=== PATIENT | female | born 1995 | race Caucasian/White ===

== ENCOUNTER 2022-08-31 21:15 | Emergency (ER) | payer OTHER, SELFPAY ==
[2022-08-31 21:47] VITALS: BP 123/83; PULSE 84; RESP 16; TEMP 36.8; O2SAT 97
--- NOTE | 2022-09-01 00:35 | ED_ITS ---
HPI - Animal Bite General Chief Complaint: Animal Bite Stated Complaint: racoon bite? scratch? Time Seen by Provider: 08/31/22 23:45 History of Present Illness HPI narrative: Patient is a 27-year-old female presenting after exposure to a raccoon. Patient states that she was at work when she was getting something out of a small shed that is raised approximately a foot off the ground. There was a raccoon underneath that she was not aware of which then either bit or scratched her on h er left lower leg. She immediately ran away. Her job was concerned about rabies prophylaxis so advised she come in. Other than the small wound on her left lower leg, she denies further complaints. Related Data Allergies Allergy/AdvReac Type Severity Reaction Status Date / Time No Known Allergies Allergy Verified 08/31/22 23:50 Review of Systems Review of Systems: All systems reviewed & are unremarkable except as noted in HPI and below Exam Narrative: GENERAL: Well-appearing, well-nourished, and in no acute distress. HEAD: Normocephalic, atraumatic. EYES: PERRLA and EOMI. ENT: Nares clear, no rhinorrhea or epistaxis. Mucous membranes moist. NECK: Supple. CHEST: Clear to auscultation. No respiratory distress. HEART: Regular rate and rhythm. No murmur heard. Normal peripheral pulses. ABDOMEN: Soft, nontender, nondistended, normal active bowel sounds. EXTREMITIES: Normal range of motion. No edema. SKIN: small abrasion to anterior aspect of lower left leg NEURO: No focal deficits. Alert and oriented x3. PSYCH: Normal mood and affect. Course Course Emergency Course: Patient is a 27-year-old female presenting after being bitten or scratched by a raccoon. Patient was given rabies vaccine as well as rabies immunoglobulin. Immunoglobulin was injected around the wound and remaining dose was delivered intramuscularly in the left thigh. Rabies vaccine was in her right deltoid. Discussed that she needs to return in 3 days, 7 days, 14 days for further v accination. Appropriate return precautions given. Patient voiced understanding and is agreeable with plan. Discharged in stable condition. Vital Signs Vital signs: Vital Signs Temperature 98.3 F 08/31/22 21:47 Pulse Rate 84 08/31/22 21:47 Respiratory Rate 16 08/31/22 21:47 Blood Pressure 123/83 08/31/22 21:47 Pulse Oximetry 97 08/31/22 21:47 Oxygen Delivery Room Air 08/31/22 21:47 Temperature 98.3 F 08/31/22 21:47 Pulse Rate 84 08/31/22 21:47 Respiratory Rate 16 08/31/22 21:47 Blood Pressure 123/83 08/31/22 21:47 Pulse Oximetry 97 08/31/22 21:47 Oxygen Delivery Room Air 08/31/22 21:47 Critical Care Time Critical Care Time Critical Care Time: No Discharge Plan Discharge Clinical Impression: Rabies contact Patient Disposition: Home, Self-Care Condition: Stable Instructions: Antibiotic Form, Rabies Vaccine (By injection), Rabies (ED) Additional Instructions: You received rabies vaccine and immunoglobulin today. Please return to have repeat rabies vaccines in 3 days, 7 days, and 14 days. Follow-up/Referrals: PHYSICIAN NOT ON STAFF,NONSTAFF [Primary Care Provider] -
[2022-09-01] MEDS: RABIES VACCINE (RABAVERT) 2.5 UNITS VIAL IM (01:13)
--- NOTE | 2022-09-01 02:11 | PC.NURSE ---
Immunoglobulin part of rabies vaccination administered by [facility]. Leija
== END 2022-09-01 02:14 | disposition home or self-care (01) ==
PROVIDERS: Emergency Provider Emergency Medicine
DX: S81.802A Unspecified open wound, left lower leg, initial encounter (principal); Z29.14 Encounter for prophylactic rabies immune globulin; Z23 Encounter for immunization; W55.59XA Other contact with raccoon, initial encounter
CPT/HCPCS: 90471; 90675; 99282

== ENCOUNTER 2022-09-15 13:20 | Outpatient (RCR) | payer OTHER, SELFPAY | END 2022-12-03 23:59 | disposition home or self-care (01) | LOC: ANHVASCINF 13:20 | PROVIDERS: Referring Provider Emergency Medicine; Visit Provider Surgery | DX: Z20.3 Contact with and (suspected) exposure to rabies (principal) | CPT/HCPCS: 90471; 90675 ==